=== PATIENT | female | born 1990 | race Caucasian/White ===

== ENCOUNTER 2018-04-24 21:42 | Emergency (ER) | payer OTHER ==
[~2018-04-24] VITALS: Ht 157.5 cm; Wt 49.9 kg
[2018-04-25] MEDS ORDERED: BENADRYL25 MG PO (04:06)
[2018-04-25] MEDS ORDERED: URIN D.S. TABL1 EACH PO (04:06)
[2018-04-25] MEDS ORDERED: CEFUROXIME500 MG PO (04:06)
== END 2018-04-25 04:03 | disposition home or self-care (01) ==
LOC: ER 21:42
DX: N39.0 Urinary tract infection, site not specified (principal); R21 Rash and other nonspecific skin eruption

== ENCOUNTER → 2019-06-17 | Outpatient (CLI) | payer OTHER ==
[~2019-06-17] MED LIST: BENADRYL25 MG PO; CEFUROXIME500 MG PO; URIN D.S. TABL1 EACH PO
== END | disposition home or self-care (01) ==
LOC: RAD 12:04
DX: S62.652A Nondisplaced fracture of middle phalanx of right middle finger, initial encounter for closed fracture (principal)

== ENCOUNTER 2019-06-19 22:06 | Emergency (ER) | payer OTHER ==
[~2019-06-19] VITALS: Ht 157.5 cm; Wt 49.9 kg
[2019-06-20] MEDS ORDERED: CEFUROXIME500 MG PO (02:25)
[2019-06-20] MEDS ORDERED: URIN D.S. TABL1 EACH PO (02:25)
== END 2019-06-20 02:34 | disposition home or self-care (01) ==
LOC: ER 22:06
DX: N30.80 Other cystitis without hematuria (principal)

== ENCOUNTER 2020-10-22 13:21 | Emergency (ER) | payer OTHER ==
[~2020-10-22] VITALS: Ht 157.5 cm; Wt 52.2 kg
[2020-10-22] MEDS ORDERED: PRENA1 TRUE CO1 EACH (13:40)
== END 2020-10-22 17:46 | disposition home or self-care (01) ==
LOC: ER 13:21
DX: O26.851 Spotting complicating pregnancy, first trimester (principal); O26.891 Other specified pregnancy related conditions, first trimester; R10.2 Pelvic and perineal pain; Z34.01 Encounter for supervision of normal first pregnancy, first trimester